=== PATIENT | female | born 1955 | race Caucasian/White ===

== ENCOUNTER → 2017-05-27 | Outpatient (CLI) | payer BC ==
[~2017-05-27] MED LIST: HORMONE CREAM
--- NOTE | 2017-05-28 09:22 | Diagnostic Imaging Report ---
Bilateral screening mammogram 2D views with tomosynthesis The current study was also evaluated with a Computer Aided Detection (CAD) system. Indication: Screening. No current complaints stated on the questionnaire. COMPARISON: 04/03/16 FINDINGS: The breasts are composed of scattered fibroglandular densities. No mass, suspicious calcifications or architectural distortion seen. Allowing for technique and positional differences, no suspicious change is seen. IMPRESSION: No significant change. ACR BI-RADS Category 2: Benign findings. Result letter will be mailed to the patient. Note: At least 10% of breast cancer is not imaged by mammography. Dictated by: Dictated on workstation # [id number]
== END ==
LOC: RAD 11:12
PROVIDERS: ATTEND Obstetrics & Gynecology
DX: Z12.31 Encounter for screening mammogram for malignant neoplasm of breast (principal)
CPT/HCPCS: 77067

== ENCOUNTER → 2019-03-03 | Outpatient (CLI) | payer BC, OTHER ==
--- NOTE | 2019-03-03 16:43 | Diagnostic Imaging Report ---
INDICATION: Routine screening. COMPARISON is made with prior mammogram from 05/27/2017 and 04/03/2016. TECHNIQUE: 2-D and 3-D bilateral screening mammography was performed with CAD. FINDINGS: Scattered fibroglandular densities are identified bilaterally. The parenchymal pattern appears to be stable. No mass or malignant appearing microcalcifications are seen. Axillae are unremarkable. IMPRESSION: BI-RADS category 1. No mammographic features suspicious for malignancy are identified. ACR BI-RADS Category 1: Negative. Result letter will be mailed to the patient. Note: At least 10% of breast cancer is not imaged by mammography. Dictated by: Dictated on workstation # [id number]
== END ==
LOC: RAD 13:13
PROVIDERS: ATTEND Obstetrics & Gynecology
DX: Z12.31 Encounter for screening mammogram for malignant neoplasm of breast (principal)
CPT/HCPCS: 77067

== ENCOUNTER 2019-04-01 03:47 | Emergency (ER) | payer OTHER ==
[~2019-04-01] VITALS: Ht 162.6 cm; Wt 62.6 kg
[2019-04-01] MEDS ORDERED: LACTATED RINGERS 1,000 ML IV ONE ×3 (03:56→04:00)
[2019-04-01] MEDS ORDERED: FAMOTIDINE 20MG/2ML IV (PEPCID) IVP ONE (04:00)
[2019-04-01] MEDS ORDERED: ONDANSETRON 4 MG/2 ML (SDV) Z0FRAN IVP ONE (04:00)
[2019-04-01 04:07] LABS: BASOPHILS % (AUTO) 0 % (0-10); EOSINOPHILS % (AUTO) 0 % (0-10); HEMATOCRIT 44 % (35-52); LYMPHOCYTES # (AUTO) 0.3 X 10^3 (1.0-4.0); LYMPHOCYTES % (AUTO) 3 % (12-44); MEAN CORPUSCULAR HEMOGLOBIN 30 PG (25-34); MEAN CORPUSCULAR HGB CONC 34 G/DL (32-36); MEAN CORPUSCULAR VOLUME 88 FL (80-99); MEAN PLATELET VOLUME 9.1 FL (7.4-10.4); MONOCYTES # (AUTO) 0.2 X 10^3 (0.0-1.0); MONOCYTES % (AUTO) 2 % (0-12); NEUTROPHILS # (AUTO) 8.7 X 10^3 (1.8-7.8); NEUTROPHILS % (AUTO) 96 % (42-75); PLATELET COUNT 259 10^3/uL (130-400); RED CELL DISTRIBUTION WIDTH 12.6 % (10.0-14.5); WHITE BLOOD COUNT 9.1 10^3/uL (4.3-11.0)
[2019-04-01 04:17] LABS: PROTHROMBIN TIME PATIENT 13.1 SEC (12.2-14.7)
[2019-04-01 04:25] LABS: ALANINE AMINOTRANSFERASE 24 U/L (0-55); ALBUMIN 4.7 GM/DL (3.2-4.5); ALKALINE PHOSPHATASE 74 U/L (40-136); BILIRUBIN,TOTAL 1.4 MG/DL (0.1-1.0); BUN/CREATININE RATIO 20; CALCIUM 9.9 MG/DL (8.5-10.1); CARBON DIOXIDE 23 MMOL/L (21-32); CHLORIDE 103 MMOL/L (98-107); CREATININE SERUM 0.79 MG/DL (0.60-1.30); GFR ESTIMATED > 60; GLUCOSE 158 MG/DL (70-105); LIPASE 21 U/L (8-78); MAGNESIUM 1.8 MG/DL (1.6-2.4); POTASSIUM 3.9 MMOL/L (3.6-5.0); SODIUM 139 MMOL/L (135-145); TOTAL PROTEIN 7.6 GM/DL (6.4-8.2)
--- NOTE | 2019-04-01 04:28 | ED General ---
General Chief Complaint: Abdominal/GI Problems Stated Complaint: POSS ALLEGIC RXN Nursing Triage Note: Pt amb to room #7 w/o difficulty with c/o nausea, vomiting, dizziness, and palpitations. Reports onset of symptoms to be approx 1900 on 03/31/19. Reports to have recieved tetanus and influenza vaccine at local [facility] @ 1400 on 03/31/19. Initial tympanic temp 99.5. Nursing Sepsis Screen: No Definite Risk Source of Information: Patient, Family Exam Limitations: No Limitations (HODA WALTERS MD) History of Present Illness Date Seen by Provider: Apr 01, 2019 Time Seen by Provider: 03:52 Initial Comments This 63-year-old woman presents to the emergency room with complaints of fairly sudden onset of nausea and vomiting at approximately 19:00. She also feels a chest pressure and racing heart. Her vomiting has been uncontrollable. She also complained of a pain in her right shoulder earlier this evening. She received a tetanus immunization and an influenza immunization yesterday. She wonders if her present symptoms could be related. She denies any history of heart problems. She takes no medications and has no other complaints. Her primary care providers Dr. ANTONIO. (HODA WALTERS MD) Allergies and Home Medications Allergies Coded Allergies: No Known Drug Allergies (Unverified , 06/02/10) Patient Home Medication List Home Medication List Reviewed: Yes (HODA WALTERS MD) Review of Systems Review of Systems Constitutional: no symptoms reported EENTM: no symptoms reported Respiratory: no symptoms reported Cardiovascular: see HPI Gastrointestinal: see HPI Genitourinary: no symptoms reported : No Musculoskeletal: no symptoms reported Skin: no symptoms reported Psychiatric/Neurological: No Symptoms Reported Hematologic/Lymphatic: No Symptoms Reported Immunological/Allergic: no symptoms reported (HODA WALTERS MD) Past Prrubjs-Apawhl-Cmozoy Hx Past Med/Social Hx: Reviewed and Corrections made (HODA WALTERS MD) Patient Social History Alcohol Use: Rarely Uses Number of Drinks Today: 0 Alcohol Beverage of Choice: Wine Recreational Drug Use: No Smoking Status: Never a Smoker 2nd Hand Smoke Exposure: No Recent Foreign Travel: No Contact w/Someone Who Travel: No Recent Infectious Disease Expo: No (HODA WALTERS MD) Immunizations Up To Date Tetanus Booster (TDap): Unknown (HODA WALTERS MD) Past Medical History Surgeries: Yes Hysterectomy, Tonsillectomy Respiratory: No Cardiac: No Neurological: Yes Headaches /Migraines Reproductive Disorders: No Gastrointestinal: No Musculoskeletal: No Endocrine: No HEENT: No Cancer: No Psychosocial: No Blood Disorders: No (HODA WALTERS MD) Family Medical History No Pertinent Family Hx (HODA WALTERS MD) Physical Exam Vital Signs Vital Signs - First Documented 04/01/19 03:52 Temp 99.5 Pulse 110 Resp 17 B/P (MAP) 136/103 (114) Pulse Ox 98 O2 Delivery Room Air (MYA OROURKE MD) Vital Signs Capillary Refill : Less Than 3 Seconds (HODA WALTERS MD) Height, Weight, BMI Height: 5'4.00" Weight: 138lbs. oz. 62.742642ks; BMI Method:Stated General Appearance: WD/WN, Mild Distress HEENT: PERRL/EOMI, Normal ENT Inspection, Other (oropharynx somewhat dry) Neck: Normal Inspection Respiratory: Lungs Clear, Normal Breath Sounds, No Accessory Muscle Use, No Respiratory Distress Cardiovascular: No Edema, No Murmur, Normal Peripheral Pulses, Tachycardia Gastrointestinal: Normal Bowel Sounds, Non Tender, Soft Extremity: Normal Inspection, No Pedal Edema Neurologic/Psychiatric: Alert, Oriented x3, No Motor/Sensory Deficits, Normal Mood/Affect, debeader II-XII Norm as Tested Skin: Normal Color, Warm/Dry (HODA WALTERS MD) Progress/Results/Core Measures Suspected Sepsis Recent Fever Within 48 Hours: Yes Infection Criteria Present: None New/Unexplained Altered Menta: No Sepsis Screen: No Definite Risk SIRS Temperature:99.5 Pulse: 110 Respiratory Rate: 17 Laboratory Tests 04/01/19 03:59: White Blood Count 9.1 Blood Pressure 136 /103 Mean: 114 Laboratory Tests 04/01/19 03:59: Creatinine 0.79, INR Comment 1.0, Platelet Count 259, Total Bilirubin 1.4H (HODA WALTERS MD) Results/Orders Lab Results Laboratory Tests Test 04/01/19 03:59 04/01/19 05:40 04/01/19 05:55 Range/Units White Blood Count 9.1 4.3-11.0 10^3/uL Red Blood Count 4.98 4.35-5.85 10^6/uL Hemoglobin 15.0 11.5-16.0 G/DL Hematocrit 44 35-52 % Mean Corpuscular Volume 88 80-99 FL Mean Corpuscular Hemoglobin 30 25-34 PG Mean Corpuscular Hemoglobin Concent 34 32-36 G/DL Red Cell Distribution Width 12.6 10.0-14.5 % Platelet Count 259 130-400 10^3/uL Mean Platelet Volume 9.1 7.4-10.4 FL Neutrophils (%) (Auto) 96 H 42-75 % Lymphocytes (%) (Auto) 3 L 12-44 % Monocytes (%) (Auto) 2 0-12 % Eosinophils (%) (Auto) 0 0-10 % Basophils (%) (Auto) 0 0-10 % Neutrophils # (Auto) 8.7 H 1.8-7.8 X 10^3 Lymphocytes # (Auto) 0.3 L 1.0-4.0 X 10^3 Monocytes # (Auto) 0.2 0.0-1.0 X 10^3 Eosinophils # (Auto) 0.0 0.0-0.3 10^3/uL Basophils # (Auto) 0.0 0.0-0.1 10^3/uL Neutrophils % (Manual) 89 % Lymphocytes % (Manual) 3 % Monocytes % (Manual) 3 % Band Neutrophils 5 % Blood Morphology Comment NORMAL Prothrombin Time 13.1 12.2-14.7 SEC INR Comment 1.0 0.8-1.4 Activated Partial Thromboplast Time 30 24-35 SEC Sodium Level 139 135-145 MMOL/L Potassium Level 3.9 3.6-5.0 MMOL/L Chloride Level 103 98-107 MMOL/L Carbon Dioxide Level 23 21-32 MMOL/L Anion Gap 13 5-14 MMOL/L Blood Urea Nitrogen 16 7-18 MG/DL Creatinine 0.79 0.60-1.30 MG/DL Estimat Glomerular Filtration Rate > 60 BUN/Creatinine Ratio 20 Glucose Level 158 H 70-105 MG/DL Calcium Level 9.9 8.5-10.1 MG/DL Corrected Calcium 8.5-10.1 MG/DL Magnesium Level 1.8 1.6-2.4 MG/DL Total Bilirubin 1.4 H 0.1-1.0 MG/DL Aspartate Amino Transf (AST/SGOT) 19 5-34 U/L Alanine Aminotransferase (ALT/SGPT) 24 0-55 U/L Alkaline Phosphatase 74 40-136 U/L Myoglobin 31.5 10.0-92.0 NG/ML Troponin I < 0.028 < 0.028 <0.028 NG/ML Total Protein 7.6 6.4-8.2 GM/DL Albumin 4.7 H 3.2-4.5 GM/DL Lipase 21 8-78 U/L Urine Color YELLOW Urine Clarity CLEAR Urine pH 6.5 5-9 Urine Specific [place] 1.010 L 1.016-1.022 Urine Protein NEGATIVE NEGATIVE Urine Glucose (UA) NEGATIVE NEGATIVE Urine Ketones NEGATIVE NEGATIVE Urine Nitrite NEGATIVE NEGATIVE Urine Bilirubin NEGATIVE NEGATIVE Urine Urobilinogen NORMAL NORMAL MG/DL Urine Leukocyte Esterase 2+ H NEGATIVE Urine RBC (Auto) NEGATIVE NEGATIVE Urine RBC NONE /HPF Urine WBC 5-10 H /HPF Urine Crystals NONE /LPF Urine Bacteria MODERATE H /HPF Urine Casts NONE /LPF Urine Mucus NEGATIVE /LPF Urine Culture Indicated YES (MYA OROURKE MD) My Orders Orders - MYA OROURKE MD Ceftriaxone For Iv Use (Rocephin For I (04/01/19 06:45) (MYA OROURKE MD) Medications Given in ED Current Medications Medications Dose Ordered Sig/Julio Route Start Time Stop Time Status Last Admin Dose Admin Ceftriaxone Sodium 1000 mg/ Sterile Water 10 ml @ 200 mls/hr ONCE ONCE IV 04/01/19 06:45 04/01/19 06:48 DC 04/01/19 06:48 200 MLS/HR Famotidine 20 mg ONCE ONCE IVP 04/01/19 04:00 04/01/19 04:03 DC 04/01/19 04:09 20 MG Ketorolac Tromethamine 15 mg ONCE ONCE IVP 04/01/19 05:00 04/01/19 05:01 DC 04/01/19 04:55 15 MG Ketorolac Tromethamine 15 mg ONCE ONCE IVP 04/01/19 05:45 04/01/19 05:46 DC 04/01/19 05:51 15 MG Lactated Ringer's 1,000 ml @ 0 mls/hr Q0M ONCE IV 04/01/19 04:00 04/01/19 04:03 DC 04/01/19 04:06 1,000 MLS/HR Lactated Ringer's 1,000 ml @ 0 mls/hr Q0M ONCE IV 04/01/19 04:00 04/01/19 04:03 DC 04/01/19 05:14 0 MLS/HR Ondansetron HCl 8 mg ONCE ONCE IVP 04/01/19 04:00 04/01/19 04:03 DC 04/01/19 04:09 8 MG (MYA OROURKE MD) Vital Signs/I&O 04/01/19 03:52 Temp 99.5 Pulse 110 Resp 17 B/P (MAP) 136/103 (114) Pulse Ox 98 O2 Delivery Room Air (MYA OROURKE MD) Vital Signs/I&O Capillary Refill : Less Than 3 Seconds (HODA WALTERS MD) Blood Pressure Mean: 114 Progress Note #1: Time: 05:02 Progress Note Symptoms are improving with IV fluids, Zofran, and Pepcid. Although her chest pain seems atypical in nature, we will do a 2 hour troponin for rule out. Patient has since developed a headache. She has a history of migraine headaches for which she sometimes uses self administered Toradol injections at home. Toradol has been ordered. She is still tachycardic. A second liter of IV fluids will be administered after the current bag finishes. Progress Note #2: Time: 05:45 Progress Note Patient's nausea remains controlled. She reports her headache is not improving after 15 mg of Toradol. She reports that she sometimes has to give a second dose of Toradol to control her headaches at home. She requests a second dose of Toradol 15 mg at this time. She was offered fentanyl but wishes to avoid opioids due to a tendency to cause nausea and vomiting. (HODA WALTERS MD) Progress Note : Progress Note 0645: Repeat labs are negative. I have reevaluated the patient and she is actually doing that her. UA does show some concern for urinary tract infection. Given that she's had rather significant nausea and vomiting, I do not believe that oral antibiotics are the best way to go initially. We will go ahead and give a gram of Rocephin IV now. Patient states that she feels that she can tolerate at home. We'll write for outpatient antibiotics as well as ondansetron. Discharged home with return precautions. Patient and family verbalize understanding instructions and agreement with plan. (MYA OROURKE MD) ECG Initial ECG Impression Date: Apr 01, 2019 Initial ECG Impression Time: 04:03 Initial ECG Rate: 108 Initial ECG Rhythm: S.Tach Comment Sinus tachycardia with no ST elevation or depression. No abnormal intervals or axis deviation. (HODA WALTERS MD) Diagnostic Imaging Diagonstic Imaging: Xray Plain Films/CT/US/NM/MRI: chest Comments Chest x-ray viewed by me. Report not yet available. No acute abnormalities appreciated. (HODA WALTRES MD) Departure Impression Primary Impression: Nausea and vomiting Qualified Codes: R11.2 - Nausea with vomiting, unspecified Additional Impressions: Chest pain Qualified Codes: R07.9 - Chest pain, unspecified Palpitations Sinus tachycardia Acute headache Qualified Codes: R51 - Headache Disposition: 01 HOME, SELF-CARE Condition: Improved Departure-Patient Inst. Decision time for Depature: 07:00 (MYA OROURKE MD) Referrals: SHAUN ANTONIO DO (PCP/Family) Primary Care Physician Patient Instructions: Nausea and Vomiting, Adult (DC), Migraine Headache (DC) Add. Discharge Instructions: All discharge instructions reviewed with patient and/or family. Voiced understanding. Clear liquid diet for the next 24-48 hours and then advance as tolerated. Take medications as directed. Follow-up with your DrJudd in a few days for recheck. Return for worse pain, fever, vomiting, weakness, breathing problems or other concerns as needed. Discussed with your DrJudd about repeat cardiac stress test as well. Scripts Ondansetron (Ondansetron Odt) 4 Mg Tab.rapdis 4 MG PO Q6H PRN for NAUSEA/VOMITING, #8 TAB 0 Refills Prov: MYA OROURKE MD 04/01/19 Cephalexin (Cephalexin) 500 Mg Tablet 500 MG PO BID, #10 TAB 0 Refills Prov: MYA OROURKE MD 04/01/19 Copy Copies To 1: SHAUN ANTONIO JOSHUA T MD Apr 01, 2019 04:28 MYA OROURKE MD Apr 01, 2019 07:26
[2019-04-01 04:45] LABS: BAND NEUTROPHILS 5 %; LYMPHOCYTES % (MANUAL) 3 %; MONOCYTES % (MANUAL) 3 %; NEUTROPHILS % (MANUAL) 89 %; RBC MORPH NORMAL
[2019-04-01] MEDS ORDERED: KETOROLAC 30 MG/ML VIAL IVP ONE ×2 (05:00→05:45)
[2019-04-01 06:00] LABS: BILIRUBIN,URINE NEGATIVE (NEGATIVE); CLARITY,URINE CLEAR; COLOR,URINE YELLOW; GLUCOSE, URINE (UA) NEGATIVE (NEGATIVE); KETONES,URINE NEGATIVE (NEGATIVE); LEUKOCYTE ESTERASE ,URINE 2+ (NEGATIVE); NITRITE,URINE NEGATIVE (NEGATIVE); PH,URINE 6.5 (5-9); PROTEIN,URINE NEGATIVE (NEGATIVE); UROBILINOGEN,URINE NORMAL (NORMAL)
[2019-04-01 06:06] LABS: BACTERIA,URINE MODERATE /HPF
[2019-04-01] MEDS ORDERED: cefTRIAXone FOR IV USE 1,000 MG in WATER (STERILE) FOR INJECTION 10 ML IV ONE (06:45)
[2019-04-01] MEDS ORDERED: ONDA4TAB11 PO (07:28)
[2019-04-01] MEDS ORDERED: CEPH500T PO (07:28)
[2019-04-01 07:36] VITALS: BP 107/76
--- NOTE | 2019-04-01 11:51 | Diagnostic Imaging Report ---
INDICATION: Shortness of breath. FINDINGS: Portable chest. The lungs are well-aerated and clear. There is no air trapping. There are no infiltrates or masses. Heart is not enlarged. No pneumothorax or pleural effusion. No bony abnormalities. IMPRESSION: Normal chest. Dictated by: Dictated on workstation # [id number]
== END 2019-04-01 07:36 | disposition home or self-care (01) ==
LOC: EDUNIT# 03:47 → ER 03:48
DX: R11.2 Nausea with vomiting, unspecified (principal); R07.9 Chest pain, unspecified; R00.2 Palpitations; R00.0 Tachycardia, unspecified; R51 Headache; G43.909 Migraine, unspecified, not intractable, without status migrainosus; Z90.89 Acquired absence of other organs; Z90.710 Acquired absence of both cervix and uterus
CPT/HCPCS: 36415; 71045; 80053; 81000; 83690; 83735; 83874; 84484; 85007; 85027; 85610; 85730; 87077; 87088; 87186; 93005; 93041

== ENCOUNTER → 2020-04-19 | Outpatient (CLI) | payer OTHER ==
[~2020-04-19] MED LIST changes: +CEPH500T PO; +ONDA4TAB11 PO
--- NOTE | 2020-04-19 13:03 | Diagnostic Imaging Report ---
INDICATION: Routine screening. COMPARISON: 03/03/2019 and 05/27/2017. TECHNIQUE: 2D and 3D bilateral screening mammography was performed with CAD. FINDINGS: Scattered fibroglandular densities are identified bilaterally. There is a density in the central right breast on the MLO view which appears slightly more prominent than on prior exams. Additional views are recommended. This most likely represents superimposed tissue. The left breast is unremarkable. There are no suspicious microcalcifications. The axillae are unremarkable. IMPRESSION: Right breast density. Additional views are recommended for further evaluation. ACR BI-RADS Category 0: Incomplete. (Needs additional imaging evaluation). Result letter will be mailed to the patient. Note: At least 10% of breast cancer is not imaged by mammography. Dictated by: Dictated on workstation # [id number]
== END ==
LOC: RAD 10:56
PROVIDERS: ATTEND Nurse Practitioner Women's Health
DX: Z12.31 Encounter for screening mammogram for malignant neoplasm of breast (principal); R92.8 Other abnormal and inconclusive findings on diagnostic imaging of breast
CPT/HCPCS: 77063; 77067

== ENCOUNTER → 2020-04-27 | Outpatient (CLI) | payer OTHER ==
--- NOTE | 2020-04-27 14:00 | Diagnostic Imaging Report ---
INDICATION: Right breast density. Patient presents for additional views. COMPARISON: Correlation is made to the recent screening study from 04/19/2020. TECHNIQUE: Unilateral right 2D and 3D diagnostic mammography was performed including MLO and conventional 90 degree lateral views. FINDINGS: The area of density in the central right breast appears to resolve with additional views. This most likely represented superimposed tissue. No mass or malignant appearing microcalcifications are seen. IMPRESSION: Additional views fail to demonstrate a discrete mass. The patient may return to routine annual screening mammography. ACR BI-RADS Category 1: Negative. Result letter will be mailed to the patient. Note: At least 10% of breast cancer is not imaged by mammography. Dictated by: Dictated on workstation # [id number]
== END ==
LOC: RAD 12:45
PROVIDERS: ATTEND Nurse Practitioner Women's Health
DX: R92.8 Other abnormal and inconclusive findings on diagnostic imaging of breast (principal)
CPT/HCPCS: 77065; G0279

== ENCOUNTER → 2021-05-23 | Outpatient (CLI) | payer OTHER ==
--- NOTE | 2021-05-23 17:37 | Diagnostic Imaging Report ---
Digital mammogram bilateral screening This study was compared to the prior exam of 04/19/2020, 03/03/2019 and 05/27/2017. At this time, there are no current complaints. The current study was also evaluated with a Computer Aided Detection (CAD) system. FINDINGS: There are scattered fibroglandular densities in both breasts which could obscure a lesion. Overall, there does not appear to have been any significant change when compared to the prior exam. No primary or secondary sign of malignancy is noted. IMPRESSION: There is no radiographic evidence for malignancy. ACR BI-RADS Category 1: Negative. Result letter will be mailed to the patient. Note: At least 10% of breast cancer is not imaged by mammography. Dictated by: Dictated on workstation # [id number]
== END ==
LOC: RAD 13:30
PROVIDERS: ATTEND Obstetrics & Gynecology
DX: Z12.31 Encounter for screening mammogram for malignant neoplasm of breast (principal)
CPT/HCPCS: 77063; 77067

== ENCOUNTER → 2021-12-18 | Outpatient (CLI) | payer OTHER ==
--- NOTE | 2021-12-18 12:44 | Diagnostic Imaging Report ---
PROCEDURE: US Thyroid. TECHNIQUE: Multiple Real-time grayscale images were obtained of the thyroid in various projections. INDICATION: Followup thyroid nodules. COMPARISON: 01/03/2015. FINDINGS: The right lobe measures 4.9 x 1.6 x 1.2 cm. The left lobe measures 4.5 x 1.7 x 1.3 cm. There is a diffuse multinodular appearance with multiple anechoic colloid cysts as well as several slightly hypoechoic nodules, some of which are spongiform, with the largest measuring 7 x 4 mm. There are some associated calcifications, consistent with colloid cysts. IMPRESSION: Multinodular solid and cystic changes are again demonstrated without appreciable change. These are considered low risk. TI-RADS 3 Dictated by: Dictated on workstation # [id number]
== END ==
LOC: RAD 11:00
PROVIDERS: ATTEND Family Medicine
DX: E04.2 Nontoxic multinodular goiter (principal)
CPT/HCPCS: 76536

== ENCOUNTER 2022-01-17 06:01 | Outpatient (CLI) | payer OTHER ==
[~2022-01-17] VITALS: Ht 162.6 cm; Wt 59.0 kg
[2022-01-17] MEDS ORDERED: [UNRECOGNIZED DRUG - CODE] IJ (09:27)
[2022-01-17] MEDS ORDERED: RIME75TA PO (09:27)
== END 2022-01-17 09:28 | disposition home or self-care (01) ==
LOC: PREOP 06:01
PROVIDERS: ATTEND Internal Medicine
DX: Z01.818 Encounter for other preprocedural examination (principal)

== ENCOUNTER 2022-01-21 19:05 | Emergency (ER) | payer OTHER ==
[~2022-01-21] VITALS: Ht 162.5 cm; Wt 60.2 kg
[~2022-01-21 19:05] MED LIST changes: +RIME75TA PO; +[UNRECOGNIZED DRUG - CODE] IJ
[2022-01-21] MEDS ORDERED: ASPIRIN 81 MG CHEW (CHILDREN'S ASA) PO ONE (19:15)
[2022-01-21 19:23] LABS: BASOPHILS % (AUTO) 0 % (0-10); EOSINOPHILS # (AUTO) 0.1 10^3/uL (0.0-0.3); EOSINOPHILS % (AUTO) 1 % (0-10); HEMATOCRIT 38 % (35-52); HEMOGLOBIN 12.8 g/dL (11.5-16.0); LYMPHOCYTES # (AUTO) 0.2 10^3/uL (1.0-4.0); LYMPHOCYTES % (AUTO) 5 % (12-44); MEAN CORPUSCULAR HEMOGLOBIN 30 pg (25-34); MEAN CORPUSCULAR HGB CONC 34 g/dL (32-36); MEAN CORPUSCULAR VOLUME 89 fL (80-99); MEAN PLATELET VOLUME 8.6 fL (9.0-12.2); MONOCYTES # (AUTO) 0.1 10^3/uL (0.0-1.0); MONOCYTES % (AUTO) 1 % (0-12); NEUTROPHILS # (AUTO) 4.7 10^3/uL (1.8-7.8); NEUTROPHILS % (AUTO) 93 % (42-75); PLATELET COUNT 166 10^3/uL (130-400); WHITE BLOOD COUNT 5.1 10^3/uL (4.3-11.0)
[2022-01-21 19:38] LABS: PROTHROMBIN TIME PATIENT 13.7 SEC (12.2-14.7)
[2022-01-21] MEDS ORDERED: diphenhydrAMINE 50 MG/ML INJ (BENADRYL) IVP ONE (19:45)
[2022-01-21] MEDS ORDERED: KETOROLAC 30 MG/ML VIAL IVP ONE (19:45)
[2022-01-21] MEDS ORDERED: NS IV 1000 ML 1,000 ML IV ONE (19:45)
[2022-01-21] MEDS ORDERED: ASPIRIN 81 MG CHEW (CHILDREN'S ASA) ONE (19:47)
[2022-01-21 19:48] LABS: CREATINE KINASE MB 1.1 NG/ML (<6.6)
[2022-01-21 19:52] LABS: ALBUMIN 3.8 GM/DL (3.2-4.5); BILIRUBIN,TOTAL 2.4 MG/DL (0.1-1.0); CALCIUM 9.5 MG/DL (8.5-10.1); CREATININE SERUM 0.75 MG/DL (0.60-1.30); MAGNESIUM 1.7 MG/DL (1.6-2.4); POTASSIUM 3.8 MMOL/L (3.6-5.0); TOTAL PROTEIN 6.5 GM/DL (6.4-8.2)
[2022-01-21] MEDS ORDERED: ONDANSETRON 4 MG/2 ML (SDV) Z0FRAN IVP ONE (20:00)
[2022-01-21] MEDS ORDERED: PROCHLORPERAZINE 10 MG/2ML INJ (COMPAZINE) IV ONE (20:00)
[2022-01-21 20:04] LABS: BAND NEUTROPHILS 13 %; LYMPHOCYTES % (MANUAL) 5 %; MONOCYTES % (MANUAL) 1 %; NEUTROPHILS % (MANUAL) 81 %; RBC MORPH NORMAL
[2022-01-21] MEDS ORDERED: ONDANSETRON 4 MG/2 ML (SDV) Z0FRAN ONE (20:05)
--- NOTE | 2022-01-21 20:11 | ED Abdominal Pain ---
General Chief Complaint: Abdominal/GI Problems Stated Complaint: RIGHT SHOULDER PAIN,CHEST DISCOMFORT,NAUSEA Nursing Triage Note: Pt arrival to ER with complaints of Chest pressure x3 days, R. shoulder pain, headache, and back pain. Pt has had some periods of nausea. Source of Information: Patient Exam Limitations: No Limitations History of Present Illness Date Seen by Provider: Jan 21, 2022 Time Seen by Provider: 19:48 Initial Comments This is a well appearing 66 yo female who presented to the ER via POV with c/o right shoulder blade pain, chest discomfort that radiates into her back, and nausea. Also states she has history of migraines and has had to take pain relief medication for her GONZALEZ over the past several days. States that her headache went away yesterday however it returned again today. She just has a overall sense of "not feeling well". She just returned from a family trip to [place], has not had any known COVID or ill exposures. She is fully vaccinated. Allergies and Home Medications Allergies Coded Allergies: No Known Drug Allergies (Unverified , 06/02/10) Patient Home Medication List Home Medication List Reviewed: Yes Ketorolac Tromethamine (Ketorolac Tromethamine) 15 Mg/Ml Syringe, 3 MG IJ PRN, (Reported) Entered as Reported by: MORRO BROOKS on 01/17/22926 Ondansetron (Ondansetron Odt) 4 Mg Tab.rapdis, 4 MG PO Q6H PRN for NAUSEA/VOMITING Prescribed by: MYA OROURKE on 04/01/19 07 Ondansetron (Ondansetron Odt) 4 Mg Tab.rapdis, 4 MG PO Q6H PRN for NAUSEA/VOMITING Prescribed by: CASTILLO GARCIAS on 01/21/222120 Oxycodone HCl (Oxycodone HCl) 5 Mg Capsule, 5 MG PO Q6H PRN for PAIN-MILD (1-4) Prescribed by: CASTILLO GARCIAS on 01/21/222150 Rimegepant Sulfate (Nurtec Odt) 75 Mg Tab.rapdis, 75 MG PO PRN, (Reported) Entered as Reported by: MORRO BROOKS on 01/17/22926 Discontinued Medications Cephalexin (Cephalexin) 500 Mg Tablet, 500 MG PO BID Discontinued Reason: No Longer Taking Prescribed by: MYA OROURKE on 04/01/19 0728 [Hormone Cream] , (Reported) Discontinued Reason: No Longer Taking Entered as Reported by: POORNIMA OLSON on 04/06/15 1029 Review of Systems Review of Systems Constitutional: see HPI EENTM: No Symptoms Reported Respiratory: See HPI Cardiovascular: See HPI Gastrointestinal: See HPI Genitourinary: No Symptoms Reported Musculoskeletal: see HPI Skin: no symptoms reported Psychiatric/Neurological: No Symptoms Reported Endocrine: No Symptoms Reported Hematologic/Lymphatic: No Symptoms Reported Past Gvnyeej-Jfhwva-Aufvmi Hx Patient Social History Tobacco Use?: No Use of E-Cig and/or Vaping dev: No Substance use?: No Alcohol Use?: No Pt feels they are or have been: No Immunizations Up To Date Tetanus Booster (TDap): Unknown Influenza Vaccine Up-to-Date: Yes; Up-to-Date First/Initial COVID19 Vaccinat: YES Second COVID19 Vaccination Eduardo: YES Third COVID19 Vaccination Date: 08/2021 COVID19 Vaccine Supervisor [employer]: [employer] Seasonal Allergies Seasonal Allergies: Yes Past Medical History Surgeries: Yes Hysterectomy, Tonsillectomy Respiratory: No Cardiac: No Neurological: Yes Headaches /Migraines 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 oz. 62.845627xb; 22.00 BMI Method:Stated General Appearance: WD/WN, no apparent distress HEENT: PERRL/EOMI, normal ENT inspection, TMs normal, pharynx normal Neck: full range of motion, supple, normal inspection Respiratory: chest non-tender, lungs clear, normal breath sounds, no respiratory distress, no accessory muscle use Cardiovascular: regular rate, rhythm, no murmur Gastrointestinal: normal bowel sounds, soft; No distended, No guarding; tenderness (RUQ ) Extremities: normal range of motion, non-tender, normal inspection, no pedal edema, normal capillary refill Back: normal inspection, no CVA tenderness, no vertebral tenderness, other (right scapular tenderness ) Neurologic/Psychiatric: no motor/sensory deficits, alert, normal mood/affect, oriented x 3 Skin: normal color, warm/dry Progress/Results/Core Measures Results/Orders Lab Results Laboratory Tests Test 01/21/22 19:15 01/21/22 20:12 Range/Units White Blood Count 5.1 4.3-11.0 10^3/uL Red Blood Count 4.26 3.80-5.11 10^6/uL Hemoglobin 12.8 11.5-16.0 g/dL Hematocrit 38 35-52 % Mean Corpuscular Volume 89 80-99 fL Mean Corpuscular Hemoglobin 30 25-34 pg Mean Corpuscular Hemoglobin Concent 34 32-36 g/dL Red Cell Distribution Width 12.6 10.0-14.5 % Platelet Count 166 130-400 10^3/uL Mean Platelet Volume 8.6 L 9.0-12.2 fL Immature Granulocyte % (Auto) 0 % Neutrophils (%) (Auto) 93 H 42-75 % Lymphocytes (%) (Auto) 5 L 12-44 % Monocytes (%) (Auto) 1 0-12 % Eosinophils (%) (Auto) 1 0-10 % Basophils (%) (Auto) 0 0-10 % Neutrophils # (Auto) 4.7 1.8-7.8 10^3/uL Lymphocytes # (Auto) 0.2 L 1.0-4.0 10^3/uL Monocytes # (Auto) 0.1 0.0-1.0 10^3/uL Eosinophils # (Auto) 0.1 0.0-0.3 10^3/uL Basophils # (Auto) 0.0 0.0-0.1 10^3/uL Immature Granulocyte # (Auto) 0.0 0.0-0.1 10^3/uL Neutrophils % (Manual) 81 % Lymphocytes % (Manual) 5 % Monocytes % (Manual) 1 % Band Neutrophils 13 % Blood Morphology Comment NORMAL Prothrombin Time 13.7 12.2-14.7 SEC INR Comment 1.0 0.8-1.4 Activated Partial Thromboplast Time 36 H 24-35 SEC D-Dimer 0.94 H 0.00-0.49 UG/ML Sodium Level 138 135-145 MMOL/L Potassium Level 3.8 3.6-5.0 MMOL/L Chloride Level 103 98-107 MMOL/L Carbon Dioxide Level 22 21-32 MMOL/L Anion Gap 13 5-14 MMOL/L Blood Urea Nitrogen 14 7-18 MG/DL Creatinine 0.75 0.60-1.30 MG/DL Estimat Glomerular Filtration Rate 89 BUN/Creatinine Ratio 19 Glucose Level 94 70-105 MG/DL Calcium Level 9.5 8.5-10.1 MG/DL Corrected Calcium 9.7 8.5-10.1 MG/DL Magnesium Level 1.7 1.6-2.4 MG/DL Total Bilirubin 2.4 H 0.1-1.0 MG/DL Aspartate Amino Transf (AST/SGOT) 177 H 5-34 U/L Alanine Aminotransferase (ALT/SGPT) 239 H 0-55 U/L Alkaline Phosphatase 202 H 40-136 U/L Total Creatine Kinase 78 29-168 U/L Creatine Kinase MB 1.1 <6.6 NG/ML Myoglobin 47.3 10.0-92.0 NG/ML Troponin I < 0.028 <0.028 NG/ML C-Reactive Protein High Sensitivity 15.07 H 0.00-0.50 MG/DL B-Type Natriuretic Peptide 78.6 <100.0 PG/ML Total Protein 6.5 6.4-8.2 GM/DL Albumin 3.8 3.2-4.5 GM/DL Influenza Type A (RT-PCR) Not Detected Not Detecte Influenza Type B (RT-PCR) Not Detected Not Detecte SARS-CoV-2 RNA (RT-PCR) Detected H Not Detecte My Orders Orders - CASTILLO GARCIAS APRN Ekg Tracing (01/21/22 19:09) Aspirin Chewable Tablet (Baby Aspirin Ch (01/21/22 19:15) Chest 1 View, Ap/Pa Only (01/21/22 19:10) Cbc With Automated Diff (01/21/22 19:10) Magnesium (01/21/22 19:10) Comprehensive Metabolic Panel (01/21/22 19:10) Myoglobin Serum (01/21/22 19:10) Protime With Inr (01/21/22 19:10) Partial Thromboplastin Time (01/21/22 19:10) O2 (01/21/22 19:10) Monitor-Rhythm Ecg Trace Only (01/21/22 19:10) Ed Iv/Invasive Line Start (01/21/22 19:10) Creatine Kinase (01/21/22 19:10) Creatine Kinase Mb (01/21/22 19:10) Bnp Frank (01/21/22 19:10) Fibrin Degradation Products (01/21/22 19:10) Troponin I Frank (01/21/22 19:10) Manual Differential (01/21/22 19:15) Ketorolac Injection (Toradol Injection) (01/21/22 19:45) Ns Iv 1000 Ml (Sodium Chloride 0.9%) (01/21/22 19:45) Diphenhydramine Injection (Benadryl Inje (01/21/22 19:45) Covid 19 Inhouse Test (01/21/22 19:51) Influenza A And B By Pcr (01/21/22 19:51) Hs C Reactive Protein (01/21/22 19:51) Ondansetron Injection (Zofran Injectio (01/21/22 20:00) Ct Lena Chest/Noang Abd-Pelv W (01/21/22 19:52) Iohexol Injection (Omnipaque 350 Mg/Ml 1 (01/21/22 20:45) Ns (Ivpb) (Sodium Chloride 0.9% Ivpb Bag (01/21/22 20:45) Aspirin Chewable Tablet (Baby Aspirin Ch (01/21/22 19:47) Ondansetron Injection (Zofran Injectio (01/21/22 20:05) Dicyclomine Injection (Bentyl Injection) (01/21/22 21:30) Oxycodone Immediate Rel Tablet (Oxyir Ta (01/21/22 22:15) Medications Given in ED Vital Signs/I&O 01/21/22 01/21/22 19:20 22:19 Temp 37.2 Pulse 116 104 Resp 18 18 B/P (MAP) 149/78 (101) 108/67 Pulse Ox 97 98 O2 Delivery Room Air Room Air Blood Pressure Mean: 101 Progress Progress Note : Progress Note Labs and imaging reviewed. She has no stones in her gallbladder, no thickening of the gallbladder or common bile stones appreciated on CT with contrast. Imaging and lab results reviewed with Dr. Torres general surgeon, will have pa stiven follow-up in office so he can schedule HIDA scan. Discussed with patient that if her symptoms worsen or her pain is not controlled, or if she starts developing a yellow tinge to her skin she is to return immediately to the emergency department. She verbalized understanding of these instructions. Was able to gain good pain control in the emergency department. She also tested positive for COVID which could also be contributing to her symptoms, we reviewed isolation procedures with her, verbalized understanding. Discharge plan of care reviewed and she is agreeable with plan. Initial ECG Impression Date: Jan 21, 2022 Initial ECG Impression Time: 19:12 Initial ECG Rate: 109 Initial ECG Rhythm: S.Tach Initial ECG Impression: Normal Diagnostic Imaging Diagonstic Imaging: Xray Plain Films/CT/US/NM/MRI: chest Comments [facility], [place] NAME: NICOLE BOONE [facility] REC#: [id number] PT STATUS: REG ER : 1955 PHYSICIAN: CASTILLO GARCIAS [employer]ING RANGE TENDER ADMIT DATE: 01/21/22/ER Signed Date of Exam:01/21/22 CHEST 1 VIEW, AP/PA ONLY INDICATION: Chest and shoulder pain. Nausea. EXAMINATION: Chest, 01/21/2022. COMPARISON: 03/24/2019. FINDINGS: The cardiomediastinal silhouette is unremarkable. The pulmonary vasculature is within normal limits. The lungs and pleural spaces are clear. IMPRESSION: No evidence of an acute cardiopulmonary process. Dictated by: Dictated on workstation # [id number] Dict: 01/21/222007 Trans: 01/21/222112 [facility] [id number] Interpreted by: COMPA CARLOS MD Electronically signed by: COMPA CARLOS MD 01/21/222112 Diagonstic Imaging: CT Plain Films/CT/US/NM/MRI: abdomen Comments [facility] [place] NAME: NICOLE BOONE [facility] REC#: [id number] PT STATUS: REG ER : 1955 PHYSICIAN: CASTILLO GARCIAS APRN ADMIT DATE: 01/21/22/ER Signed Date of Exam:01/21/22 CT LENA CHEST/NOANG ABD-PELV W INDICATION: Chest pressure x 3 days. Shoulder pain and headache and back pain. Nausea. Prior history of hysterectomy. EXAMINATION: CTA of the chest with CT of the abdomen and pelvis, 01/21/2022. All CT scans use one or more of the following dose optimizing techniques: automated exposure control, MA and/or KvP adjustment based on patient size and exam type or iterative reconstruction. FINDINGS: CTA CHEST: The thoracic aorta is unremarkable. There are no central or proximal segmental pulmonary emboli with the peripheral vessels poorly opacified. There is no mediastinal or hilar adenopathy. There are no pericardial or pleural effusions. Within the lungs there is a small 4 mm nodule in the peripheral aspect of the right lower lobe, image #70. Remaining lungs demonstrate scattered areas of atelectasis or scar. No infiltrate is appreciated. There is no pneumothorax. There is no acute osseous abnormality. IMPRESSION: 1. No central or proximal segmental pulmonary embolus with peripheral vessels poorly opacified. 2. Thoracic aorta unremarkable. Nonspecific nodule in the peripheral right lower lobe. This should be followed using the Fleischner criteria. CT ABDOMEN/PELVIS: The abdominal aorta appears unremarkable. There is a small nonspecific hypodensity in the dome of the right lobe of the liver too small for characterization but fairly simple in appearance. The remaining liver unremarkable. Spleen normal. Gallbladder unremarkable. Pancreas unremarkable. There is a 1.5 cm nodule in the left adrenal gland with a 1.2 cm hypodensity in the right adrenal gland. Although this could represent adenomas, nonemergent dedicated adrenal protocol CT recommended for further characterization. The right kidney is unremarkable. There are tiny subcentimeter hypodensities in the left kidney too small for characterization. Multiple cystic areas noted within the region of the renal pelvis likely parapelvic cysts. No hydronephrosis is appreciated. There are findings of moderate constipation. The appendix appears normal. There is no ascites or free air. There is no acute osseous abnormality. IMPRESSION: 1. Multiple cystic lesions of left kidney predominantly parapelvic in location consistent with parapelvic cysts with no hydronephrosis. 2. Bilateral adrenal lesions, see above discussion and recommendations. 3. Findings of moderate constipation. Other incidental findings as above. Dictated by: Dictated on workstation # [id number] Dict: 01/21/222034 Trans: 01/21/222109 [facility] [id number] Interpreted by: COMPA CARLOS MD Electronically signed by: COMPA CARLOS MD 01/21/222109 Reviewed: Reviewed by Me Departure Impression Primary Impression: COVID-19 Additional Impressions: Elevated LFTs Elevated alkaline phosphatase level Disposition: 01 HOME, SELF-CARE Condition: Stable Departure-Patient Inst. Decision time for Depature: 21:18 Referrals: SHAUN ANTONIO DO (PCP/Family) Primary Care Physician Patient Instructions: COVID-19 Overview Add. Discharge Instructions: Plan: 1. Follow up with Dr. Torres on SaturdayJanuary 26 at 11:00am in his office. 2. Take Hydrocodone 5/325mg by mouth every 6 hours as needed. 3. Take Zofran 4mg by mouth every 6 hours as needed. 4. Call Dr. Torres office if you are experiencing increased pain/nausea or return to ER. 5. Isolate at home for 5 days, then wear mask for additional 5 days. 6. Return for any new, concerning, or worsening symptoms. All discharge instructions reviewed with patient and/or family. Voiced understanding. Scripts Oxycodone HCl (Oxycodone HCl) 5 Mg Capsule 5 MG PO Q6H PRN for PAIN-MILD (1-4), #15 CAP 0 Refills Prov: CASTILLO GARCIAS [employer] TENDER 01/21/22 Ondansetron (Ondansetron Odt) 4 Mg Tab.rapdis 4 MG PO Q6H PRN for NAUSEA/VOMITING, #30 TAB 0 Refills Prov: CASTILLO GARCIAS [employer] RANGE TENDER 01/21/22 CASTILLO GARCIAS [employer] RANGE TENDER Jan 21, 2022 20:10
[2022-01-21] MEDS ORDERED: IOHEXOL 350 MG/ML 100 ML (OMNIPAQUE 350) VIAL IV ONE (20:45)
[2022-01-21] MEDS ORDERED: NS 100 ML (IVPB) BAG IV ONE (20:45)
--- NOTE | 2022-01-21 20:50 | Diagnostic Imaging Report ---
INDICATION: Chest pressure x 3 days. Shoulder pain and headache and back pain. Nausea. Prior history of hysterectomy. EXAMINATION: CTA of the chest with CT of the abdomen and pelvis, 01/21/2022. All CT scans use one or more of the following dose optimizing techniques: automated exposure control, MA and/or KvP adjustment based on patient size and exam type or iterative reconstruction. FINDINGS: CTA CHEST: The thoracic aorta is unremarkable. There are no central or proximal segmental pulmonary emboli with the peripheral vessels poorly opacified. There is no mediastinal or hilar adenopathy. There are no pericardial or pleural effusions. Within the lungs there is a small 4 mm nodule in the peripheral aspect of the right lower lobe, image #70. Remaining lungs demonstrate scattered areas of atelectasis or scar. No infiltrate is appreciated. There is no pneumothorax. There is no acute osseous abnormality. IMPRESSION: 1. No central or proximal segmental pulmonary embolus with peripheral vessels poorly opacified. 2. Thoracic aorta unremarkable. Nonspecific nodule in the peripheral right lower lobe. This should be followed using the Fleischner criteria. CT ABDOMEN/PELVIS: The abdominal aorta appears unremarkable. There is a small nonspecific hypodensity in the dome of the right lobe of the liver too small for characterization but fairly simple in appearance. The remaining liver unremarkable. Spleen normal. Gallbladder unremarkable. Pancreas unremarkable. There is a 1.5 cm nodule in the left adrenal gland with a 1.2 cm hypodensity in the right adrenal gland. Although this could represent adenomas, nonemergent dedicated adrenal protocol CT recommended for further characterization. The right kidney is unremarkable. There are tiny subcentimeter hypodensities in the left kidney too small for characterization. Multiple cystic areas noted within the region of the renal pelvis likely parapelvic cysts. No hydronephrosis is appreciated. There are findings of moderate constipation. The appendix appears normal. There is no ascites or free air. There is no acute osseous abnormality. IMPRESSION: 1. Multiple cystic lesions of left kidney predominantly parapelvic in location consistent with parapelvic cysts with no hydronephrosis. 2. Bilateral adrenal lesions, see above discussion and recommendations. 3. Findings of moderate constipation. Other incidental findings as above. Dictated by: Dictated on workstation # [id number]
[2022-01-21] MEDS ORDERED: ONDA4TAB11 PO (21:21)
[2022-01-21] MEDS ORDERED: DICYCLOMINE 10 MG/ML (BENTYL) 2 ML AMP IM ONE (21:30)
[2022-01-21] MEDS ORDERED: OXYC5CAP18 PO (21:44)
[2022-01-21 22:19] VITALS: BP 108/67
== END 2022-01-21 22:18 | disposition home or self-care (01) ==
LOC: EDUNIT# 19:05 → ER 19:09
DX: U07.1 COVID-19 (principal); R94.5 Abnormal results of liver function studies; R74.8 Abnormal levels of other serum enzymes
CPT/HCPCS: 36415; 71045; 71275; 74177; 80053; 82550; 82553; 83735; 83874; 83880; 84484; 85007; 85027; 85379; 85610; 85730; 86141; 87636; 93005; 93041

== ENCOUNTER 2022-01-23 08:46 | Inpatient (IN) | payer OTHER ==
[~2022-01-23] VITALS: Ht 162.6 cm; Wt 61.0 kg
[~2022-01-23 08:46] MED LIST changes: +OXYC5CAP18 PO
[2022-01-23 11:39] VITALS: BP 121/75
[2022-01-23] MEDS ORDERED: PATIENT MAY USE OWN MEDS, ALL PO SCH (11:45)
[2022-01-23] MEDS ORDERED: PANTOPRAZOLE 40 MG (PROTONIX) VIAL IV NR (12:00)
[2022-01-23] MEDS ORDERED: KETOROLAC 30 MG/ML VIAL IVP NR (12:00)
[2022-01-23] MEDS: ONDANSETRON 4 MG/2 ML (SDV) Z0FRAN IVP NR ×2 (12:09→14:45)
[2022-01-23] MEDS: ENOXAPARIN 40 MG/0.4 ML (LOVENOX) SYR SC SCH (12:14)
[2022-01-23] MEDS: NS IV 1000 ML 1,000 ML IV SCH ×2 (12:14→18:30)
[2022-01-23] MEDS ORDERED: MILK OF MAGNESIA 400 MG/5 ML 30 ML UDC PO NR (12:30)
[2022-01-23 13:06] LABS: BASOPHILS # (AUTO) 0.1 10^3/uL (0.0-0.1); BASOPHILS % (AUTO) 0 % (0-10); EOSINOPHILS % (AUTO) 0 % (0-10); HEMATOCRIT 37 % (35-52); HEMOGLOBIN 12.2 g/dL (11.5-16.0); LYMPHOCYTES # (AUTO) 0.6 10^3/uL (1.0-4.0); LYMPHOCYTES % (AUTO) 4 % (12-44); MEAN CORPUSCULAR HEMOGLOBIN 30 pg (25-34); MEAN CORPUSCULAR HGB CONC 33 g/dL (32-36); MEAN CORPUSCULAR VOLUME 93 fL (80-99); MEAN PLATELET VOLUME 9.6 fL (9.0-12.2); MONOCYTES # (AUTO) 0.8 10^3/uL (0.0-1.0); MONOCYTES % (AUTO) 5 % (0-12); NEUTROPHILS # (AUTO) 11.6 10^3/uL (1.8-7.8); NEUTROPHILS % (AUTO) 83 % (42-75); PLATELET COUNT 154 10^3/uL (130-400); WHITE BLOOD COUNT 13.9 10^3/uL (4.3-11.0)
[2022-01-23 13:25] LABS: ALBUMIN 3.5 GM/DL (3.2-4.5); BILIRUBIN,TOTAL 1.3 MG/DL (0.1-1.0); CALCIUM 9.4 MG/DL (8.5-10.1); CREATININE SERUM 1.06 MG/DL (0.60-1.30); MAGNESIUM 1.9 MG/DL (1.6-2.4); TOTAL PROTEIN 6.3 GM/DL (6.4-8.2)
[2022-01-23 13:28] LABS: ERYTHROCYTE SEDIMENTATION RATE 51 MM/HR (0-30)
[2022-01-23 16:04] VITALS: BP 147/79
[2022-01-23 16:18] LABS: BILIRUBIN,URINE NEGATIVE (NEGATIVE); CLARITY,URINE CLOUDY; COLOR,URINE YELLOW; GLUCOSE, URINE (UA) NEGATIVE (NEGATIVE); KETONES,URINE 2+ (NEGATIVE); LEUKOCYTE ESTERASE ,URINE 2+ (NEGATIVE); NITRITE,URINE POSITIVE (NEGATIVE); PH,URINE 5.5 (5-9); PROTEIN,URINE 1+ (NEGATIVE)
[2022-01-23 16:33] LABS: BACTERIA,URINE LARGE /HPF; WBC,URINE 50-100 /HPF
--- NOTE | 2022-01-23 17:44 | History & Physical ---
History of Present Illness History of Present Illness Reason for visit/HPI This is a 66 year old female who was seen in the emergency room 2 days ago with severe RUQ pain. She had a workup which showed elevated LFTs but normal CT scan of the abdomen and normal CTA of the chest. She was positive for COVID-19 however she was not having any respiratory symptoms. It was felt that her presentation and elevated LFTs were likely gallbladder etiology and she was sent home with pain meds and to follow up with surgery for a HIDA scan. However, she was having ongoing RUQ pain today with intractable nausea and vomiting and poor appetite. She was also experiencing headache. It was decided to admit her for IVFs, antiemetics and pain control. Her labs will be repeated and monitored. Date of Admission Jan 23, 2022 at 11:25 Date Seen by a Provider: Jan 23, 2022 Time Seen by a Provider: 18:00 I consulted on this patient on 01/23/22 17:35 Attending Physician Shaun Dejesus DO Admitting Physician Admitting Physician: Shaun Dejesus DO Attending Physician: Shaun Dejesus DO Consult Allergies and Home Medications Allergies Coded Allergies: No Known Drug Allergies (Unverified , 06/02/10) Patient Home Medication List Home Medication List Reviewed: Yes Ketorolac Tromethamine (Ketorolac Tromethamine) 15 Mg/Ml Syringe, 3 MG IJ PRN, (Reported) Entered as Reported by: MORRO BROOKS on 01/17/22 0927 Ondansetron (Ondansetron Odt) 4 Mg Tab.rapdis, 4 MG PO Q6H PRN for NAUSEA/VOMITING Prescribed by: MYA OROURKE on 04/01/19 0728 Ondansetron (Ondansetron Odt) 4 Mg Tab.rapdis, 4 MG PO Q6H PRN for NAUSEA/VOMITING Prescribed by: CASTILLO GARCIAS on 01/21/222120 Oxycodone HCl (Oxycodone HCl) 5 Mg Capsule, 5 MG PO Q6H PRN for PAIN-MILD (1-4) Prescribed by: CASTILLO GARCIAS on 01/21/222150 Rimegepant Sulfate (Nurtec Odt) 75 Mg Tab.rapdis, 75 MG PO PRN, (Reported) Entered as Reported by: MORRO BROOKS on 01/17/22 0927 Discontinued Medications Cephalexin (Cephalexin) 500 Mg Tablet, 500 MG PO BID Discontinued Reason: No Longer Taking Prescribed by: MYA OROURKE on 04/01/19 0728 [Hormone Cream] , (Reported) Discontinued Reason: No Longer Taking Entered as Reported by: POORNIMA OLSON on 04/06/15 1029 Past Xqnrtyt-Vjqypb-Bhwebm Hx Patient Social History Marrital Status: Employed/Student: retired Tobacco Use?: No Substance use?: No Alcohol Use?: No Pt feels they are or have been: No Immunizations Up To Date Date of Influenza Vaccine: May 05, 2021 First/Initial COVID19 Vaccinat: YES Second COVID19 Vaccination Eduardo: YES Tetanus Booster (TDap): Unknown Seasonal Allergies Seasonal Allergies: Yes Current Status status: No status: No Advance Directives: No Communicates: Verbally Primary Language: Serbian Preferred Spoken Language: Serbian Is interpretation needed?: No Past Medical History Surgeries: Hysterectomy, Tonsillectomy 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 /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 Blood Disorders: No Family Medical History No Pertinent Family Hx Review of Systems Constitutional: No no symptoms reported, No see HPI, No chills, No diaphoresis, No dizziness, No fever, No malaise, No weakness, No weight gain, No weight loss, No other Respiratory: No no symptoms reported, No see HPI, No cough, No dyspnea on exertion, No hemoptysis, No orthopnea, No phlegm, No short of breath, No str idor, No wheezing, No other Cardiovascular: No no symptoms reported, No see HPI, No chest pain, No edema, No Hx of Intervention, No palpitations, No syncope, No vascular heart diseas, No other Gastrointestinal: abdominal pain (RUQ), loss of appetite, nausea, vomiting Genitourinary: No no symptoms reported, No see HPI, No decreased output, No discharge, No dysuria, No frequency, No hematuria, No hesitancy, No incontinence, No nocturia, No pain, No other Musculoskeletal: No no symptoms reported, No see HPI, No back pain, No gout, No joint pain, No joint swelling, No muscle pain, No muscle stiffness, No muscle cramps, No muscle twitching, No muscle weakness, No neck pain, No other Skin: No no symptoms reported, No see HPI, No change in color, No change in hair/nails, No dryness, No hx of skin cancer, No lesions, No lumps, No pruritus, No rash, No other Psychiatric/Neurological: Headache Physical Exam Vital Signs Vital Signs - First Documented 01/23/22 11:39 Temp 37.5 Pulse 87 Resp 18 B/P (MAP) 121/75 (90) Pulse Ox 98 O2 Delivery Room Air Capillary Refill : Height, Weight, BMI Height: 5'4.00" Weight: 138lbs. oz. 62.357351iv; 23.07 BMI Method:Stated General Appearance: Mild Distress HEENT: Normal ENT Inspection Neck: Supple Respiratory: Lungs Clear Cardiovascular: Regular Rate, Rhythm Gastrointestinal: Normal Bowel Sounds, Soft, Tenderness (RUQ) Rectal: Deferred Back: No CVA Tenderness Extremity: Non Tender, No Calf Tenderness, No Pedal Edema Neurologic/Psychiatric: Alert, Oriented x3 Skin: Warm/Dry Comments Laboratory Tests 01/23/22 12:45: White Blood Count 13.9H, Red Blood Count 4.03, Hemoglobin 12.2, Hematocrit 37, Mean Corpuscular Volume 93, Mean Corpuscular Hemoglobin 30, Mean Corpuscular Hemoglobin Concent 33, Red Cell Distribution Width 13.2, Platelet Count 154, Mean Platelet Volume 9.6, Immature Granulocyte % (Auto) 7, Neutrophils (%) (Auto) 83H, Lymphocytes (%) (Auto) 4L, Monocytes (%) (Auto) 5, Eosinophils (%) (Auto) 0, Basophils (%) (Auto) 0, Neutrophils # (Auto) 11.6H, Lymphocytes # (Auto) 0.6L, Monocytes # (Auto) 0.8, Eosinophils # (Auto) 0.0, Basophils # (A uto) 0.1, Immature Granulocyte # (Auto) 0.9H, Erythrocyte Sedimentation Rate 51H , Sodium Level 136, Potassium Level 4.0, Chloride Level 102, Carbon Dioxide Level 22, Anion Gap 12, Blood Urea Nitrogen 19H, Creatinine 1.06, Estimat Glomerular Filtration Rate 59, BUN/Creatinine Ratio 18, Glucose Level 88, Calcium Level 9.4, Corrected Calcium 9.8, Magnesium Level 1.9, Total Bilirubin 1.3H, Aspartate Amino Transf (AST/SGOT) 41H, Alanine Aminotransferase (ALT/SGPT) 103H, Alkaline Phosphatase 153H, C-Reactive Protein High Sensitivity 28.78H, Total Protein 6.3L, Albumin 3.5, Amylase Level 27, Lipase 5L 01/23/22 16:15: Urine Color YELLOW, Urine Clarity CLOUDY, Urine pH 5.5, Urine Specific [place] 1.025H, Urine Protein 1+H, Urine Glucose (UA) NEGATIVE, Urine Ketones 2+H, Urine Nitrite POSITIVEH, Urine Bilirubin NEGATIVE, Urine Urobilinogen 0.2, Urine Leukocyte Esterase 2+H, Urine RBC (Auto) 2+H, Urine RBC NONE, Urine WBC 50-100H, Urine Squamous Epithelial Cells NONE, Urine Renal Epithelial Cells NONE, Urine Crystals NONE, Urine Bacteria LARGEH, Urine Casts NONE, Urine Mucus MODERATEH, Urine Culture Indicated YES Assessment/Plan Assessment and Plan 1. Intractable RUQ pain with elevated LFTs--admit and recheck LFTs, pain c ontrol 2. Dehydration with intractable N/V--admit for IVFs and IV antiemetics 3. COVID-19--supportive care, cover with Lovenox for DVT prophylaxis 4. UTI--start rocephin 5. Migraine--treat with toradol and zofran Admission Diagnosis Admission Status: Inpatient Order (span 2 midnights) Reason for Inpatient Admission: Will need at least 2 days of IVFs and nausea and pain control SHAUN DEJESUS DO Jan 23, 2022 17:44
[2022-01-23] MEDS: cefTRIAXone 1 GM PRE-MIX 50 ML IV SCH (18:06)
[2022-01-23] MEDS ORDERED: fentaNYL INJ 100 MCG/2 ML AMP IVP PRN (19:00)
[2022-01-23] MEDS: ONDANSETRON 4 MG/2 ML (SDV) Z0FRAN IV PRN (19:52)
[2022-01-23 20:08] VITALS: BP 136/79
[2022-01-23] MEDS ORDERED: SENNA W/DOCUSATE (SENOKOT S) TABLET PO SCH (21:00)
[2022-01-23] MEDS: PANTOPRAZOLE 40 MG (PROTONIX) VIAL IV SCH (21:45)
[2022-01-23] MEDS: SENNA W/DOCUSATE (SENOKOT S) TABLET PO SCH (21:46)
[2022-01-23] MEDS: KETOROLAC 30 MG/ML VIAL IVP PRN (22:15)
[2022-01-24] VITALS (7 sets, daily range): BP systolic 107–136; BP diastolic 65–80
[2022-01-24] MEDS: NS IV 1000 ML 1,000 ML IV SCH ×3 (02:41→16:46)
[2022-01-24] MEDS: KETOROLAC 30 MG/ML VIAL IVP PRN ×3 (05:14→18:51)
[2022-01-24 05:43] LABS: HEMATOCRIT 39 % (35-52); HEMOGLOBIN 12.5 g/dL (11.5-16.0); MEAN CORPUSCULAR HEMOGLOBIN 30 pg (25-34); MEAN CORPUSCULAR HGB CONC 32 g/dL (32-36); MEAN CORPUSCULAR VOLUME 93 fL (80-99); MEAN PLATELET VOLUME 9.4 fL (9.0-12.2); PLATELET COUNT 177 10^3/uL (130-400); WHITE BLOOD COUNT 13.3 10^3/uL (4.3-11.0)
[2022-01-24 06:03] LABS: ALBUMIN 3.4 GM/DL (3.2-4.5); POTASSIUM 4.1 MMOL/L (3.6-5.0)
[2022-01-24 06:04] LABS: CALCIUM 9.2 MG/DL (8.5-10.1)
[2022-01-24 06:06] LABS: TOTAL PROTEIN 6.5 GM/DL (6.4-8.2)
[2022-01-24 06:08] LABS: BILIRUBIN,TOTAL 1.2 MG/DL (0.1-1.0)
[2022-01-24 06:09] LABS: CREATININE SERUM 1.07 MG/DL (0.60-1.30)
[2022-01-24] MEDS: ONDANSETRON 4 MG/2 ML (SDV) Z0FRAN IV PRN (08:17)
[2022-01-24] MEDS: SENNA W/DOCUSATE (SENOKOT S) TABLET PO SCH ×2 (08:17→20:44)
[2022-01-24] MEDS: cefTRIAXone 1 GM PRE-MIX 50 ML IV SCH (08:18)
[2022-01-24] MEDS: PANTOPRAZOLE 40 MG (PROTONIX) VIAL IV SCH ×2 (08:19→20:44)
[2022-01-24] MEDS ORDERED: PANTOPRAZOLE 40 MG (PROTONIX) VIAL IV SCH (09:00)
--- NOTE | 2022-01-24 09:11 | Diagnostic Imaging Report ---
INDICATION: Hypoxemia. EXAMINATION: Portable chest at 8:58 AM. FINDINGS: There is some atelectasis at both lung bases. There are no infiltrates, effusions, or pneumothoraces. IMPRESSION: Volume loss at both lung bases compared to 01/21/2022. Dictated by: Dictated on workstation # [id number]
[2022-01-24] MEDS: ENOXAPARIN 40 MG/0.4 ML (LOVENOX) SYR SC SCH (10:57)
--- NOTE | 2022-01-24 12:26 | Progress Note ---
Subjective Date Seen by a Provider: Jan 24, 2022 Time Seen by a Provider: 08:44 Subjective/Events-last exam Fwup COVID-19, RUQ pain with elevated LFTs, cephalgia, nausea. Nausea this morning. Ongoing headache. Oxygen saturation down this morning. Just put on oxygen. Blood culture growing out probable E coli. Objective Exam Vital Signs Date Time Temp Pulse Resp B/P (MAP) Pulse Ox O2 Delivery O2 Flow Rate FiO2 01/24/22 11:05 Nasal Cannula 3.00 01/24/22 08:40 92 Nasal Cannula 3.00 01/24/22 08:32 37.1 91 18 122/65 (84) 83 Room Air 01/24/22 08:00 92 Nasal Cannula 3.00 01/24/22 05:10 37.4 95 18 129/71 (90) 95 Room Air 01/24/22 00:04 36.9 84 18 107/66 (80) 97 Room Air 01/23/22 20:08 37.1 78 20 136/79 (98) 95 Room Air 01/23/22 19:45 95 Room Air 01/23/22 16:04 36.9 92 20 147/79 (101) 98 Room Air 01/23/22 13:51 97 Room Air I & O 01/24/22 07:00 Intake Total 1520 ml Output Total 450 ml Balance 1070 ml Capillary Refill : General Appearance: Moderate Distress Neck: Supple Respiratory: Lungs Clear, Decreased Breath Sounds Cardiovascular: Regular Rate, Rhythm Gastrointestinal: normal bowel sounds, soft, tenderness (RUQ/Epigastric) Extremity: Non Tender, No Calf Tenderness, No Pedal Edema Neurologic/Psychiatric: Alert Skin: Warm/Dry Results Lab Laboratory Tests 01/23/22 12:45: White Blood Count 13.9H, Red Blood Count 4.03, Hemoglobin 12.2, Hematocrit 37, Mean Corpuscular Volume 93, Mean Corpuscular Hemoglobin 30, Mean Corpuscular Hemoglobin Concent 33, Red Cell Distribution Width 13.2, Platelet Count 154, Mean Platelet Volume 9.6, Immature Granulocyte % (Auto) 7, Neutrophils (%) (Auto) 83H, Lymphocytes (%) (Auto) 4L, Monocytes (%) (Auto) 5, Eosinophils (%) (Auto) 0, Basophils (%) (Auto) 0, Neutrophils # (Auto) 11.6H, Lymphocytes # (Auto) 0.6L, Monocytes # (Auto) 0.8, Eosinophils # (Auto) 0.0, Basophils # (Auto) 0.1, Immature Granulocyte # (Auto) 0.9H, Erythrocyte Sedimentation Rate 51H, Sodium Level 136, Potassium Level 4.0, Chloride Level 102, Carbon Dioxide Level 22, Anion Gap 12, Blood Urea Nitrogen 19H, Creatinine 1.06, Estimat Glomerular Filtration Rate 59, BUN/Creatinine Ratio 18, Glucose Level 88, Calcium Level 9.4, Corrected Calcium 9.8, Magnesium Level 1.9, Total Bilirubin 1 .3H, Aspartate Amino Transf (AST/SGOT) 41H, Alanine Aminotransferase (ALT/SGPT) 103H, Alkaline Phosphatase 153H, C-Reactive Protein High Sensitivity 28.78H, Total Protein 6.3L, Albumin 3.5, Amylase Level 27, Lipase 5L 01/23/22 16:15: Urine Color YELLOW, Urine Clarity CLOUDY, Urine pH 5.5, Urine Specific [place] 1.025H, Urine Protein 1+H, Urine Glucose (UA) NEGATIVE, Urine Ketones 2+H, Urine Nitrite POSITIVEH, Urine Bilirubin NEGATIVE, Urine Urobilinogen 0.2, Urine Leukocyte Esterase 2+H, Urine RBC (Auto) 2+H, Urine RBC NONE, Urine WBC 50-100H, Urine Squamous Epithelial Cells NONE, Urine Renal Epithelial Cells NONE, Urine Crystals NONE, Urine Bacteria LARGEH, Urine Casts NONE, Urine Mucus MODERATEH, Urine Culture Indicated YES 01/24/22 05:35: White Blood Count 13.3H, Red Blood Count 4.18, Hemoglobin 12.5, Hematocrit 39, Mean Corpuscular Volume 93, Mean Corpuscular Hemoglobin 30, Mean Corpuscular Hemoglobin Concent 32, Red Cell Distribution Width 13.2, Platelet Count 177, Mean Platelet Volume 9.4, Sodium Level 139, Potassium Level 4.1, Chloride Level 105, Carbon Dioxide Level 19L, Anion Gap 15H, Blood Urea Nitrogen 20H, Creatinine 1.07, Estimat Glomerular Filtration Rate 58, BUN/Creatinine Ratio 19, Glucose Level 94, Calcium Level 9.2, Corrected Calcium 9.7, Total Bilirubin 1.2H , Aspartate Amino Transf (AST/SGOT) 27, Alanine Aminotransferase (ALT/SGPT) 84H, Alkaline Phosphatase 172H, Total Protein 6.5, Albumin 3.4 Microbiology 01/23/22 Urine Culture - Preliminary, Resulted Escherichia coli 01/23/22 Blood Culture - Preliminary, Resulted Gram Negative Cole Assessment/Plan Assessment/Plan Assess & Plan/Chief Complaint 1. COVID-19--check CXR, supportive care 2. Hypoxia--on oxygen, start IS, Check CXR 3. UTI with Sepsis--looks like growing out E. coli--fluids and started IV rocephin last night 4. Intractable Nausea/Dyspepsia--on IV protonix and has zofran prn 5. Cephalgia/Migraine--using toradol/oxycodone prn 6. RUQ pain with elevated LFTs--LFTs trending down Clinical Quality Measures Admission Status Admission Dx 1. Intractable RUQ pain with elevated LFTs--admit and recheck LFTs, pain control 2. Dehydration with intractable N/V--admit for IVFs and IV antiemetics 3. COVID---supportive care, cover with Lovenox for DVT prophylaxis 4. UTI--start rocephin 5. Migraine--treat with toradol and zofran SHAUN ANTONIO DO Jan 24, 2022 12:26
[2022-01-24] MEDS ORDERED: ALBUTEROL/IPRATROP (COMBIVENT RESPIMAT) 4 GM INHALER IH SCH (13:00)
[2022-01-24] MEDS: RT-ALBUTEROL HFA 8.5 GM INHALER IH SCH ×2 (15:33→22:50)
[2022-01-24] MEDS: UMECLIDINIUM BROMIDE (INCRUSE ELLIPTA) 7'S IH SCH (15:33)
[2022-01-25] MEDS: RT-ALBUTEROL HFA 8.5 GM INHALER IH SCH ×4 (03:57→20:48)
[2022-01-25] MEDS: NS IV 1000 ML 1,000 ML IV SCH ×2 (04:02→08:28)
[2022-01-25 04:49] VITALS: BP 114/69
[2022-01-25] MEDS: KETOROLAC 30 MG/ML VIAL IVP PRN ×3 (05:00→19:42)
[2022-01-25 05:37] LABS: HEMATOCRIT 33 % (35-52); MEAN CORPUSCULAR HEMOGLOBIN 30 pg (25-34); MEAN CORPUSCULAR HGB CONC 33 g/dL (32-36); MEAN CORPUSCULAR VOLUME 92 fL (80-99); MEAN PLATELET VOLUME 9.3 fL (9.0-12.2); PLATELET COUNT 155 10^3/uL (130-400); WHITE BLOOD COUNT 12.2 10^3/uL (4.3-11.0)
[2022-01-25 05:58] LABS: ALBUMIN 2.9 GM/DL (3.2-4.5); POTASSIUM 3.6 MMOL/L (3.6-5.0)
[2022-01-25 06:00] LABS: CALCIUM 8.5 MG/DL (8.5-10.1)
[2022-01-25 06:01] LABS: TOTAL PROTEIN 5.5 GM/DL (6.4-8.2)
[2022-01-25 06:03] LABS: BILIRUBIN,TOTAL 0.9 MG/DL (0.1-1.0)
[2022-01-25 06:04] LABS: CREATININE SERUM 0.86 MG/DL (0.60-1.30)
[2022-01-25 07:38] VITALS: BP 132/83
[2022-01-25] MEDS: UMECLIDINIUM BROMIDE (INCRUSE ELLIPTA) 7'S IH SCH (07:41)
[2022-01-25] MEDS: cefTRIAXone 1 GM PRE-MIX 50 ML IV SCH (08:28)
[2022-01-25] MEDS: SENNA W/DOCUSATE (SENOKOT S) TABLET PO SCH ×2 (08:28→20:18)
[2022-01-25] MEDS: PANTOPRAZOLE 40 MG (PROTONIX) VIAL IV SCH ×2 (08:29→20:18)
[2022-01-25] MEDS: ACETAMINOPHEN 325 MG TABLET PO PRN ×3 (09:46→20:18)
[2022-01-25 11:13] VITALS: BP 124/76
[2022-01-25] MEDS: ENOXAPARIN 40 MG/0.4 ML (LOVENOX) SYR SC SCH (11:26)
--- NOTE | 2022-01-25 12:29 | Progress Note ---
Subjective Date Seen by a Provider: Jan 25, 2022 Time Seen by a Provider: 08:35 Subjective/Events-last exam Fwup COVID-19, RUQ pain with elevated LFTs, cephalgia, nausea. Some confusion and irritability this morning. Had nosebleed overnight and did not sleep well due to the nosebleed and respiratory being late to give her inhaler dose. Objective Exam Vital Signs Date Time Temp Pulse Resp B/P (MAP) Pulse Ox O2 Delivery O2 Flow Rate FiO2 01/25/22 11:46 37.4 01/25/22 11:13 36.7 93 18 124/76 (92) 90 Room Air 01/25/22 08:00 Room Air 01/25/22 07:41 98 Nasal Cannula 3.00 01/25/22 07:41 95 Room Air 01/25/22 07:41 95 Room Air 01/25/22 07:38 36.9 95 20 132/83 (99) 96 Nasal Cannula 2.00 01/25/22 04:49 36.7 99 20 114/69 (84) 98 Nasal Cannula 3.00 01/24/22 23:59 36.8 92 20 131/77 (95) 100 Nasal Cannula 3.00 01/24/22 22:51 91 Nasal Cannula 3.00 01/24/22 20:00 92 Nasal Cannula 3.00 01/24/22 19:28 36.8 92 20 136/80 (98) 93 Nasal Cannula 3.00 01/24/22 16:00 36.6 91 18 128/76 (93) 96 Nasal Cannula 3.00 01/24/22 15:33 91 Nasal Cannula 3.00 I & O 01/25/22 07:00 Intake Total 5205 ml Output Total 1100 ml Balance 4105 ml Capillary Refill : General Appearance: Mild Distress Respiratory: Lungs Clear, Decreased Breath Sounds Cardiovascular: Regular Rate, Rhythm Gastrointestinal: normal bowel sounds, soft, tenderness (RUQ and Epigastric) Extremity: Non Tender, No Calf Tenderness, No Pedal Edema Neurologic/Psychiatric: Alert, Oriented x3 Results Lab Laboratory Tests 01/25/22 05:23: White Blood Count 12.2H, Red Blood Count 3.63L, Hemoglobin 11.0L, Hematocrit 33L , Mean Corpuscular Volume 92, Mean Corpuscular Hemoglobin 30, Mean Corpuscular Hemoglobin Concent 33, Red Cell Distribution Width 13.5, Platelet Count 155, Mean Platelet Volume 9.3, Sodium Level 135, Potassium Level 3.6, Chloride Level 106, Carbon Dioxide Level 19L, Anion Gap 10, Blood Urea Nitrogen 18, Creatinine 0.86, Estimat Glomerular Filtration Rate 75, BUN/Creatinine Ratio 21, Glucose Level 112H, Calcium Level 8.5, Corrected Calcium 9.4, Total Bilirubin 0.9, As partate Amino Transf (AST/SGOT) 16, Alanine Aminotransferase (ALT/SGPT) 53, Alkaline Phosphatase 134, Total Protein 5.5L, Albumin 2.9L Microbiology 01/23/22 Urine Culture - Preliminary, Resulted Escherichia coli 01/23/22 Blood Culture - Preliminary, Resulted Escherichia coli Assessment/Plan Assessment/Plan Assess & Plan/Chief Complaint 1. COVID-19--supportive care, lovenox for DVT prophylaxis, IS and on duoneb 2. Hypoxia due to atelectesis--on IS, on duoneb, up to chair, off oxygen this morning 3. UTI with Sepsis--preliminary E. coli--fluids and continue rocephin 4. Intractable Nausea/Dyspepsia--on IV protonix and has zofran prn, add maalox 5. Cephalgia/Migraine--using toradol, stop oxycodone due to confusion/irritability 6. RUQ pain with elevated LFTs--LFTs back to normal and pain improving Clinical Quality Measures Admission Status Admission Dx 1. Intractable RUQ pain with elevated LFTs--admit and recheck LFTs, pain control 2. Dehydration with intractable N/V--admit for IVFs and IV antiemetics 3. COVID-19--supportive care, cover with Lovenox for DVT prophylaxis 4. UTI--start rocephin 5. Migraine--treat with toradol and zofran SHAUN ANTONIO DO Jan 25, 2022 12:29
[2022-01-25] MEDS ORDERED: ANTACID SUSP 30 ML UDC (MYLANTA) PO PRN (12:30)
[2022-01-25] MEDS: ALPRAZolam 0.25 MG (XANAX) TAB PO PRN ×2 (13:31→20:18)
[2022-01-25 16:28] VITALS: BP 136/83
[2022-01-25 19:35] VITALS: BP 136/84
[2022-01-26] MEDS: KETOROLAC 30 MG/ML VIAL IVP PRN (02:57)
[2022-01-26] MEDS: ACETAMINOPHEN 325 MG TABLET PO PRN ×3 (02:58→18:01)
[2022-01-26] MEDS: RT-ALBUTEROL HFA 8.5 GM INHALER IH SCH ×4 (02:58→21:32)
[2022-01-26 03:51] VITALS: BP 146/79
[2022-01-26 06:14] LABS: HEMATOCRIT 33 % (35-52); HEMOGLOBIN 10.9 g/dL (11.5-16.0); MEAN CORPUSCULAR HEMOGLOBIN 30 pg (25-34); MEAN CORPUSCULAR HGB CONC 34 g/dL (32-36); MEAN CORPUSCULAR VOLUME 89 fL (80-99); MEAN PLATELET VOLUME 9.4 fL (9.0-12.2); PLATELET COUNT 184 10^3/uL (130-400); WHITE BLOOD COUNT 11.4 10^3/uL (4.3-11.0)
[2022-01-26 07:27] VITALS: BP 146/85
[2022-01-26] MEDS: cefTRIAXone 1 GM PRE-MIX 50 ML IV SCH (08:06)
[2022-01-26] MEDS: PANTOPRAZOLE 40 MG (PROTONIX) VIAL IV SCH ×2 (08:06→21:26)
[2022-01-26] MEDS: ALPRAZolam 0.25 MG (XANAX) TAB PO PRN ×2 (08:06→21:26)
[2022-01-26] MEDS: SENNA W/DOCUSATE (SENOKOT S) TABLET PO SCH ×2 (08:06→21:31)
[2022-01-26] MEDS: UMECLIDINIUM BROMIDE (INCRUSE ELLIPTA) 7'S IH SCH (09:35)
--- NOTE | 2022-01-26 09:41 | Progress Note ---
Subjective Date Seen by a Provider: Jan 26, 2022 Time Seen by a Provider: 09:38 Subjective/Events-last exam Fwup COVID-19, RUQ pain with elevated LFTs, cephalgia, nausea., UTI with sepsis. Slept better last night. Pain improving. Back on oxygen. Objective Exam Vital Signs Date Time Temp Pulse Resp B/P (MAP) Pulse Ox O2 Delivery O2 Flow Rate FiO2 01/26/22 07:27 37.4 86 18 146/85 (105) 93 Nasal Cannula 2.50 01/26/22 03:51 37.6 90 20 146/79 (101) 94 Nasal Cannula 2.00 01/26/22 00:00 94 Nasal Cannula 2.00 01/25/22 20:48 91 Nasal Cannula 2.50 01/25/22 20:00 Room Air 2.00 01/25/22 19:35 37.6 85 20 136/84 (101) 100 Nasal Cannula 2.00 01/25/22 16:28 37.5 82 24 136/83 (100) 97 Nasal Cannula 2.00 01/25/22 14:45 95 Nasal Cannula 2.00 01/25/22 11:46 37.4 01/25/22 11:13 36.7 93 18 124/76 (92) 90 Room Air I & O 01/26/22 07:00 Intake Total 2450 ml Output Total 1300 ml Balance 1150 ml Capillary Refill : General Appearance: Mild Distress Respiratory: Crackles (left sided), Decreased Breath Sounds, Rales (left) Cardiovascular: Regular Rate, Rhythm Gastrointestinal: normal bowel sounds, soft, tenderness (Mild RUQ and epigastric) Extremity: Non Tender, No Calf Tenderness, No Pedal Edema Neurologic/Psychiatric: Alert, Oriented x3 Skin: Warm/Dry Results Lab Laboratory Tests 01/26/22 05:51: White Blood Count 11.4H, Red Blood Count 3.65L, Hemoglobin 10.9L, Hematocrit 33L , Mean Corpuscular Volume 89, Mean Corpuscular Hemoglobin 30, Mean Corpuscular Hemoglobin Concent 34, Red Cell Distribution Width 13.6, Platelet Count 184, Mean Platelet Volume 9.4, C-Reactive Protein High Sensitivity 16.51H Microbiology 01/23/22 Urine Culture - Final, Complete Escherichia coli 01/23/22 Blood Culture - Preliminary, Resulted Escherichia coli Assessment/Plan Assessment/Plan Assess & Plan/Chief Complaint 1. COVID-19--supportive care, lovenox for DVT prophylaxis, IS and on duoneb 2. Hypoxia due to atelectesis--on IS, on duoneb, up to chair, Repeat CXR due to rales on left 3. UTI with Sepsis--preliminary E. coli--continue rocephin 4. Intractable Nausea/Dyspepsia--on IV protonix and has zofran and maalox prn 5. Cephalgia/Migraine--using toradol and tylenol 6. RUQ pain with elevated LFTs--LFTs back to normal and pain improving, discussed further GB workup as outpatient Clinical Quality Measures Admission Status Admission Dx 1. Intractable RUQ pain with elevated LFTs--admit and recheck LFTs, pain control 2. Dehydration with intractable N/V--admit for IVFs and IV antiemetics 3. COVID-19--supportive care, cover with Lovenox for DVT prophylaxis 4. UTI--start rocephin 5. Migraine--treat with toradol and zofran SHAUN ANTONIO DO Jan 26, 2022 09:41
--- NOTE | 2022-01-26 10:00 | Diagnostic Imaging Report ---
INDICATION: Lower respiratory infection Portable chest 9:41 AM There are bilateral pleural effusions with bibasilar atelectasis. There is pulmonary vascular congestion. IMPRESSION: Mild pulmonary vascular congestion with small pleural effusions. This is slightly worse compared to 01/24/2022. Dictated by: Dictated on workstation # [id number]
[2022-01-26] MEDS ORDERED: KCL 20 MEQ TAB (K-DUR) PO NR (11:15)
[2022-01-26] MEDS ORDERED: FUROSEMIDE 40 MG (LASIX) TAB PO NR (11:15)
[2022-01-26 11:25] VITALS: BP 147/84
[2022-01-26] MEDS: ENOXAPARIN 40 MG/0.4 ML (LOVENOX) SYR SC SCH (11:55)
[2022-01-26 15:53] VITALS: BP 133/79
[2022-01-26 19:21] VITALS: BP 124/79
[2022-01-26 23:57] VITALS: BP 140/85
[2022-01-27] MEDS: KETOROLAC 30 MG/ML VIAL IVP PRN (02:24)
[2022-01-27] MEDS: RT-ALBUTEROL HFA 8.5 GM INHALER IH SCH ×2 (02:31→09:02)
[2022-01-27 04:44] VITALS: BP 127/72
[2022-01-27 05:55] LABS: HEMATOCRIT 32 % (35-52); HEMOGLOBIN 10.9 g/dL (11.5-16.0); MEAN CORPUSCULAR HEMOGLOBIN 30 pg (25-34); MEAN CORPUSCULAR HGB CONC 34 g/dL (32-36); MEAN CORPUSCULAR VOLUME 87 fL (80-99); MEAN PLATELET VOLUME 9.1 fL (9.0-12.2); PLATELET COUNT 228 10^3/uL (130-400)
[2022-01-27] MEDS ORDERED: KCL 20 MEQ TAB (K-DUR) PO SCH (07:00)
[2022-01-27 07:47] VITALS: BP 147/87
[2022-01-27] MEDS: SENNA W/DOCUSATE (SENOKOT S) TABLET PO SCH (08:59)
[2022-01-27] MEDS: PANTOPRAZOLE 40 MG (PROTONIX) VIAL IV SCH (08:59)
[2022-01-27] MEDS: cefTRIAXone 1 GM PRE-MIX 50 ML IV SCH (08:59)
[2022-01-27] MEDS ORDERED: FUROSEMIDE 40 MG (LASIX) TAB PO SCH (09:00)
[2022-01-27] MEDS: UMECLIDINIUM BROMIDE (INCRUSE ELLIPTA) 7'S IH SCH (09:02)
[2022-01-27] MEDS ORDERED: CEFD300C3 PO (11:36)
[2022-01-27 11:58] VITALS: BP 129/78
[2022-01-27 12:39] VITALS: BP 129/78
--- NOTE | 2022-01-27 20:04 | Discharge Summary ---
Discharge Summary Hospital Course Problems/Dx: (1) Sepsis due to urinary tract infection Status: Acute (2) E coli bacteremia Status: Acute (3) Acalculous cholecystitis Status: Acute (4) COVID-19 Status: Acute Hospital Course Date of Admission: Jan 23, 2022 at 11:25 Admission Diagnosis : Sepsis due to UTI Family Physician/Provider: Erin Dejesus DO Date of Discharge: 01/27/22 Discharge Diagnosis: Sepsis due to E coli UTI and bacteremia, likely acute acalculous cholecystitis Hospital Course: Meghna Priest is a 66 year old female who was admitted with intractable abdominal pain. She was having right upper quadrant pain and had elevated LFTs. She was also found to have a UTI and was started on IV Rocephin. Her urine culture and blood cultures all returned with pansensitive E coli. Her abdominal pain and liver enzymes improved. She likely had an acute acalculous cholecysti tis associated with sepsis and E coli bacteremia. She had tested positive for COVID in the ER previously. She was asymptomatic. Repeat COVID testing was negative. This was likely a false positive, but she was informed of current guidelines recommending 5 days of isolation followed by 5 days with a mask, as she is fully vaccinated. She was given a prescription to complete a course of Omnicef as an outpatient. She should call Dr. Dejesus's office on Saturday to schedule a follow up appointment. She was discharged home in stable condition. Labs and Pending Lab Test: Laboratory Tests 01/27/22 05:35: White Blood Count 8.0, Red Blood Count 3.67L, Hemoglobin 10.9L, Hematocrit 32L, Mean Corpuscular Volume 87, Mean Corpuscular Hemoglobin 30, Mean Corpuscular Hemoglobin Concent 34, Red Cell Distribution Width 13.2, Platelet Count 228, Mean Platelet Volume 9.1 Microbiology 01/23/22 Urine Culture - Final, Complete Escherichia coli 01/23/22 Blood Culture - Final, Complete Escherichia coli Home Meds Active Cefdinir 300 Mg Capsule 300 Mg PO BID 5 Days Oxycodone HCl 5 Mg Capsule 5 Mg PO Q6H PRN Ondansetron Odt (Ondansetron) 4 Mg Tab.rapdis 4 Mg PO Q6H PRN Ondansetron Odt (Ondansetron) 4 Mg Tab.rapdis 4 Mg PO Q6H PRN Reported Nurtec Odt (Rimegepant Sulfate) 75 Mg Tab.rapdis 75 Mg PO PRN Ketorolac Tromethamine 15 Mg/Ml Syringe 3 Mg IJ PRN Assessment/Pt Instructions See instructions Discharge Planning: >30 minutes discharge planning Discharge Instructions Discharge Diet: No Restrictions Activity as Tolerated: Yes Discharge Physical Examination Vital Signs Vital Signs Date Time Temp Pulse Resp B/P (MAP) Pulse Ox O2 Delivery O2 Flow Rate FiO2 01/27/22 12:39 37.4 71 18 129/78 95 Room Air 01/27/22 09:07 3.00 General Appearance: No Apparent Distress, WD/WN Respiratory: Lungs Clear, No Respiratory Distress Cardiovascular: Regular Rate, Rhythm, No Murmur Gastrointestinal: Normal Bowel Sounds, Soft Neurologic/Psychiatric: Alert, Normal Mood/Affect Allergies: Coded Allergies: No Known Drug Allergies (Unverified , 06/02/10) Copy Copies To 1: ERIN DEJESUS DO Discharge Summary Date of Admission Jan 23, 2022 at 11:25 Date of Discharge Jan 27, 2022 at 12:40 Discharge Date: Jan 27, 2022 Discharge Time: 12:40 Admission Diagnosis Sepsis due to UTI Discharge Diagnosis (1) Sepsis due to urinary tract infection Status: Acute (2) E coli bacteremia Status: Acute (3) Acalculous cholecystitis Status: Acute (4) COVID-19 Status: Acute CARLOS SCHAFFER MD Jan 27, 2022 20:03
--- NOTE | 2022-01-30 02:20 | Physician Query Clarification ---
PQ-Uncertain Diagnosis Admission/Discharge Admission Date: Jan 23, 2022 at 11:25 Discharge Date: Jan 27, 2022 at 12:40 CARLOS Nunez MD The medical record reflects the following clinical scenario: History/Risk Factors: 66 y/o female patient had sepsis due to E. coli UTI, has tested positive for COVID in ER previously and asymptomatic, repeat COVID test was negative, this was likely false positive. Hand P, 01/23: Dehydration with nausea vomiting- IV F and anti-emetics, COVID-19- supportive care, UTI- start Rocephin. Clinical Findings: COVID swab on 01/26 negative. Treatment: Recommended 5 days isolation and wear mask. Question: Is COVID-19 a clinically valid diagnosis? COVID-19 was documented in the Hand P, 01/23 with no further documentation in the medical record. Please document a response in Progress Note or Discharge Summary. 1. Yes, clinically valid, condition resolved. 2. No, condition ruled out. 3. Other, with explanation of clinical findings. 4. Undetermined, no explanation for clinical findings. PHYSICIAN RESPONSE Diagnosis clinically valid: No, conditon ruled out In responding to this query, please exercise your independent professional judgment. The purpose of this communication is to more accurately reflect the complexity of your patients condition. The fact that a question is asked does not imply that any particular answer is desired or expected. Thank you for your timely response to this clarification. Requestors name: [ ] Phone # [ ] THIS PHYSICIAN QUERY FORM IS A PERMANENT PART OF THE MEDICAL RECORD WARNER ALLEN Jan 30, 2022 02:20 CARLOS SCHAFFER MD Feb 08, 2022 12:54
== END 2022-01-27 12:40 | disposition home or self-care (01) | DRG 872 ==
LOC: EDSTATUS 08:46 → UNDOADMOB 11:25 → 4TH 11:25 → OBSVTOIN 11:25 → INTOOBSV 11:25 → UNDODISIN 01-27 12:40
PROVIDERS: ADMIT Family Medicine; ATTEND Family Medicine
DX: A41.51 Sepsis due to Escherichia coli [E. coli] (principal); N39.0 Urinary tract infection, site not specified; K80.00 Calculus of gallbladder with acute cholecystitis without obstruction; E86.0 Dehydration; G43.909 Migraine, unspecified, not intractable, without status migrainosus; Z79.899 Other long term (current) drug therapy; Z20.822 Contact with and (suspected) exposure to COVID-19
CPT/HCPCS: 36415; 71045; 80053; 81000; 82150; 83690; 83735; 85025; 85027; 85652; 86141; 87040; 87077; 87088; 87186; 87636; 94640; 94664; 94760

== ENCOUNTER → 2022-02-02 | Outpatient (CLI) | payer OTHER ==
[~2022-02-02] MED LIST changes: +CEFD300C3 PO
--- NOTE | 2022-02-02 08:25 | Diagnostic Imaging Report ---
PROCEDURE: US Gallbladder. INDICATION: Right upper quadrant pain with elevated liver function tests. TECHNIQUE: Multiple grayscale sonographic images were obtained of the right upper quadrant of the abdomen. CORRELATION STUDY: None FINDINGS: LIVER: Liver length 17.4 cm. Liver echotexture unremarkable. A recently described hypodensity in the dome of the liver on CT is not visualized on ultrasound. The main portal vein is patent and with normal direction of flow. GALLBLADDER: Multiple echogenic, non-shadowing foci within the gallbladder. Largest up to 1 cm in size. These are reported as nonmobile. COMMON BILE DUCT: Nondilated at 0.5 cm. AORTA/IVC: Not well visualized. PANCREAS: Visualized portions appearing unremarkable. RIGHT KIDNEY: 11.5 x 5.1 x 4.5 cm. No hydronephrosis. OTHER: None. IMPRESSION: 1. Multiple echogenic, non-shadowing, non-mobile foci in the gallbladder. Could reflect potential gallbladder polyps versus potential adhered sludge balls or less likely stones. 2. Recently described lesion of the hepatic dome on CT imaging is not appreciated on this ultrasound study. Dictated by: Dictated on workstation # [id number]
== END ==
LOC: RAD 07:15
PROVIDERS: ATTEND Family Medicine
DX: R10.11 Right upper quadrant pain (principal); R74.8 Abnormal levels of other serum enzymes
CPT/HCPCS: 76705

== ENCOUNTER 2022-05-09 05:36 | Outpatient (CLI) | payer OTHER ==
[~2022-05-09] VITALS: Ht 162.6 cm; Wt 59.9 kg
[2022-05-10] MEDS ORDERED: FLUT9.9S NS (14:09)
[2022-05-10] MEDS ORDERED: ASPI-999 PO (14:09)
[2022-05-10] MEDS ORDERED: OMEG12002 PO (14:09)
== END 2022-05-10 14:10 | disposition home or self-care (01) ==
LOC: PREOP 05:36
PROVIDERS: ATTEND Internal Medicine
DX: Z01.818 Encounter for other preprocedural examination (principal)

== ENCOUNTER → 2022-05-24 | Outpatient (CLI) | payer OTHER ==
[~2022-05-24] MED LIST changes: +ASPI-999 PO; +FLUT9.9S NS; +OMEG12002 PO
--- NOTE | 2022-05-24 12:51 | Diagnostic Imaging Report ---
Indication: Routine screening. Comparison is made with prior mammograms 05/23/2021 and it 04/19/2020. 2-D and 3-D bilateral screening mammography was performed with CAD. Scattered fibroglandular densities are identified bilaterally. The parenchymal pattern is stable. No mass or malignant-appearing microcalcifications are seen. Axillae are unremarkable. IMPRESSION: BI-RADS Category 1. No mammographic features suspicious for malignancy are identified. ACR BI-RADS Category 1: Negative. Result letter will be mailed to the patient. Note: At least 10% of breast cancer is not imaged by mammography. Dictated by: Dictated on workstation # [id number]
== END ==
LOC: RAD 10:10
PROVIDERS: ATTEND Surgery
DX: Z12.31 Encounter for screening mammogram for malignant neoplasm of breast (principal)
CPT/HCPCS: 77063; 77067

== ENCOUNTER → 2023-06-10 | Outpatient (CLI) | payer MEDICARE ==
--- NOTE | 2023-06-10 10:13 | Diagnostic Imaging Report ---
INDICATION: Routine screening. COMPARISON: 05/24/2022 and 05/23/2021. TECHNIQUE: 2D and 3D bilateral screening mammography was performed with CAD. FINDINGS: Scattered fibroglandular densities are identified bilaterally. The parenchymal pattern is stable. No mass or malignant-appearing microcalcifications are identified. The axillae are unremarkable. IMPRESSION: No mammographic features suspicious for malignancy are identified. ACR BI-RADS Category 1: Negative. Result letter will be mailed to the patient. Note: At least 10% of breast cancer is not imaged by mammography. Dictated by: Dictated on workstation # [id number]
== END ==
LOC: RAD 09:00
PROVIDERS: ATTEND Nurse Practitioner
DX: Z12.31 Encounter for screening mammogram for malignant neoplasm of breast (principal)
CPT/HCPCS: 77063; 77067